=== PATIENT | male | born 1965 ===

== ENCOUNTER 2023-07-13 06:30 | Day surgery (SDC) | payer OTHER ==
[~2023-07-13] VITALS: Ht 182.9 cm; Wt 86.6 kg
[2023-07-13] MEDS ORDERED: fentaNYL citrate 0.05 MG/ML VIAL ONE (08:25)
[2023-07-13] MEDS: fentaNYL citrate 0.05 MG/ML VIAL IVP ONE (08:58)
[2023-07-13] MEDS: LIDOCAINE 2% 100 MG/5 ML UJET TP ONE (09:08)
== END 2023-07-13 10:06 | disposition home or self-care (01) ==
LOC: MOR 06:30 → MMU 06:50 → MOR 10:06
PROVIDERS: ATTEND Internal Medicine Gastroenterology
DX: Z12.11 Encounter for screening for malignant neoplasm of colon (principal); K63.5 Polyp of colon; K64.9 Unspecified hemorrhoids
CPT/HCPCS: 45380; J3010